=== PATIENT | female | born 1940 | race African-American/Black ===

== ENCOUNTER 2018-05-22 06:45 | Observation (INO) | payer OTHER ==
[~2018-05-22] VITALS: Ht 160 cm; Wt 84.2 kg
--- NOTE | ~2018-05-22 | P ---
[facility] [place] [address] PROCEDURE REPORT Name: TIFFANIE DAVILA Room #: 209-P [facility] Danilo Frye#: [id number] Admission: 05/22/18 ������������������ Attend Phys: Wilber Canales MD Discharge: 05/23/18 ������������������ Date of : 40 Report #: [id number] THIS REPORT FOR: //name// CC: FAM tate KEYLA CARLOS [place] PREOPERATIVE DIAGNOSIS: Supraventricular tachycardia. POSTOPERATIVE DIAGNOSIS: Typical atrioventricular node reentrant tachycardia. HISTORY: The patient is a 78-year-old with history of SVT, here for ablation. PROCEDURES PERFORMED: 1. SVT ablation, CPT code 48317. 2. EP with left atrial pacing and recording, CPT code 59982. 3. Program stimulation after pacing, CPT code 19287. 4. 3D mapping, CPT code 40954. ANESTHESIA: The patient underwent MAC anesthesia with no anesthesia related complications. DESCRIPTION OF PROCEDURE: The patient underwent informed consent. We discussed the details of the procedure including the risks, which include but not limited to bleeding, vascular damage, cardiac perforation, stroke and CT. She understood these risks and is willing to proceed. The patient was brought to the EP laboratory in fasting and sedated state, prepped and draped in a sterile fashion and I then injected lidocaine to the bilateral groin regions and obtained access to bilateral femoral veins placing an 8 and 6-Rwandan short sheath in the right femoral vein and a 7 and 6-Rwandan short sheath in the left femoral vein using the modified Seldinger technique. Next, under fluoroscopy, I placed 3 quadripolar catheters at the HRA, His, and RV positions and a decapolar catheter in the coronary sinus. At baseline, this patient was in sinus rhythm, sinus cycle length was 760 milliseconds, DE interval 170 milliseconds, QRS duration 90 milliseconds, QT interval 390 milliseconds, AH interval 106 milliseconds, HV interval 50 milliseconds. Next, atrial pacing was performed from the right and left atrium from the HRA catheter and the CS catheter. AV block was noted at 350 milliseconds and with atrial burst pacing, there was clearly evidence that the patient had a slow pathway given her very long AH interval. Atrial ERP was noted at 300 milliseconds at [address] cycle length. Ventricular pacing was performed and VA block was 500 milliseconds. Ventricular ERP was 390 milliseconds at [address] cycle length with evidence of retrograde AV juan echoes. Next, isoproterenol infusion was [facility] [address] [place] [address] PROCEDURE REPORT Name: ZACK DAVILAFIDENCIO Room #: 209-P [facility] Danilo Frye#: [id number] Admission: 05/22/18 ������������������ Attend Phys: Wilber Canales MD Discharge: 05/23/18 ������������������ Date of : 40 Report #: [id number] initiated at 1 mcg per minute and with atrial burst pacing, the patient went into SVT with a tachycardia cycle length of 450 milliseconds, septal VA time of 35 milliseconds and ventricular entrainment demonstrated a VAHV response consistent with typical AV juan reentrant tachycardia. This was easily inducible while on Isuprel. 3D MAPPING AND ABLATION: Next, I opened a 4 mm Biosense Ramos ablation catheter and placed this via an SR0 sheath. A detailed 3D geometry of the right atrium with specific emphasis of the His bundle, slow pathway region and coronary sinus ostium was created. Next, ablation was performed at 50 roman and 55 degrees. A total of 5 lesions were performed and there was nice slow junctionals throughout these lesions. During the last lesion, there was a short run of nonsustained VT with transient 2:1 conduction, but this resolved. Immediately post-ablation, atrial burst pacing was performed and there was no longer any evidence of a slow pathway. AV block was noted at 520 milliseconds and there was no longer the long AH interval. AV juan ERP was noted at 430 milliseconds at [address] cycle length. Isoproterenol was initiated at 1 mcg per minute and AV block was noted at 430 milliseconds. Isoproterenol was then increased to 2 mcg per minute and again no SVT could be induced, there was not even single AV juan echoe noted. Atrial ERP was noted at 390 milliseconds at a [address] cycle length. Post-ablation, the patient was in sinus rhythm with sinus cycle length of 700 milliseconds, DE interval 200 milliseconds, QRS duration 98 milliseconds, QT interval 380 milliseconds, AH interval 123 milliseconds, and HV interval 49 milliseconds. CONCLUSIONS: 1. Successful ablation of typical AV juan reentrant tachycardia. 2. Normal SA juan function. 3. Normal AV juan function. 4. Normal His-Purkinje function. ��������������������������������������������� ���������������������������������������� By: ��������������������������������������������� 1304 [id number] Wilber Canales MD /nt
[2018-05-22 07:21] VITALS: BP 201/80
[2018-05-22] MEDS ORDERED: PACERONE200 MG PO (07:35)
[2018-05-22] MEDS ORDERED: CADUET 10 MG-11 EACH PO (07:36)
[2018-05-22] MEDS ORDERED: ASPIR 8181 MG PO (07:37)
[2018-05-22] MEDS ORDERED: PLAVIX 75 MG TA75 M1 PO (07:37)
[2018-05-22] MEDS ORDERED: AMARYL2 MG PO (07:38)
[2018-05-22] MEDS ORDERED: FENOFIBRATE48 MG PO (07:38)
[2018-05-22] MEDS ORDERED: IMDUR 60 MG TAB60 M1 PO (07:39)
[2018-05-22 07:40] LABS: ABSOLUTE NEUTROPHILS 6.5 thou/uL (1.4-8.2); BASOPHILS 0.9 % (0.0-2.0); EOSINOPHILS 1.7 % (0.0-3.0); HEMATOCRIT 41.4 % (37.0-47.0); HEMOGLOBIN 13.4 gm/dL (12.0-15.0); LYMPHOCYTES 28.4 % (24.0-44.0); MCHC 32.4 g/dL (28.0-37.0); MCV 83.4 fL (80.0-100.0); MONOCYTES 7.7 % (1.0-8.0); PLATELET COUNT 389 thou/uL (150-400); POLYS 61.3 % (36.0-66.0); RBC 4.96 mil/uL (4.20-5.00); RDW 15.5 % (10.5-14.5); WBC 10.6 thou/uL (4.0-11.0)
[2018-05-22] MEDS ORDERED: CRESTOR5 MG PO (07:41)
[2018-05-22] MEDS ORDERED: KLOR-CON 1010 MEQ PO (07:42)
[2018-05-22] MEDS ORDERED: RANEXA500 MG PO (07:42)
[2018-05-22] MEDS ORDERED: TOPROL XL25 MG PO (07:43)
[2018-05-22] MEDS ORDERED: OLMESARTAN-HCT1 EAC2 PO (07:43)
[2018-05-22] MEDS ORDERED: AMLODIPINE BESY10 MG PO (07:45)
[2018-05-22 07:53] LABS: APTT 25.4 Seconds (24.5-32.8); PROTIME 10.1 Seconds (9.3-11.4)
[2018-05-22 08:49] LABS: ALBUMIN 4.1 g/dL (3.4-5.0); CALCIUM 10.3 mg/dL (8.5-10.1); CREATININE 1.1 mg/dL (0.6-1.0); POTASSIUM 3.1 mmol/L (3.5-5.1); TOTAL BILIRUBIN 0.4 mg/dL (<0.1-1.0); TOTAL PROTEIN 8.4 g/dL (6.4-8.2)
--- NOTE | 2018-05-22 09:27 | EKG ---
[place] [address] [facility] [place] [address] ELECTROCARDIOGRAM REPORT Name: TIFFANIE DAVILA [id number] ������������������ Admission: 05/22/18 ������������������ Attend Phys: Wilber Canales MD Discharge: ������������������ Date of : 40 Report #: [id number] ����������������������������������������������������������������� [id number] THIS REPORT FOR: //name// [facility] Test Date: 2018-05-22 Test Time: 07:15:38 Pat Name: TIFFANIE DAVILA Department: Room: Gender: F Lawn Technician: [place] LOCKE : 1940 Requested By: Wilber Canales Order Number: [id number] MD: Pepito Ashley Measurements Intervals [place] Rate: 85 P: 95 WV: 171 QRS: 51 QRSD: 91 T: 211 QT: 393 QTc: 468 Interpretive Statements Sinus rhythm Probable LVH with secondary repol abnrm No previous ECG available for comparison Electronically Signed On 05-22-2018 9:27:01 MILLER SUPERVISOR by Pepito Ashley [email or web address] ��������������������������������������������� <ELECTRONICALLY SIGNED> ���������������������������������������� By: Pepito Ashley MD, [facility] ��������������������������������������������� 05/22/18 0927 4 Pepito Ashley MD, FACC /EPI
--- NOTE | 2018-05-22 16:32 | NUR ---
PT ADMITTED FROM CLINICAL NURSING DIRECTOR AT APPROX 1545. PT ORIENTED TO ROOM AND UNIT. PT A/O X 4. DENIES PAIN. VSS. SR ON TELE. ADMISSION ASSESSMENT COMPLETED.
[2018-05-22 21:22] VITALS: BP 184/55
[2018-05-23 00:18] VITALS: BP 151/82
[2018-05-23 04:00] VITALS: BP 145/82
--- NOTE | 2018-05-23 04:05 | NUR ---
Pt post cardiac ablation. ao x4. Groin sites dressing (L & R ) both clean dry and intact, with minimal dry blood stay on the left that was there post procedure. pt BP controlled better compared previous SBP 200+ . pt denies nausea, chest pain, SR on the monitor. anticipate to DC today.
[2018-05-23 07:34] VITALS: BP 161/70
[2018-05-23 09:11] VITALS: BP 161/70
[2018-05-23] MEDS ORDERED: CADUET 10 MG-11 EACH PO (09:15)
[2018-05-23] MEDS ORDERED: CLONIDINE0.1 PO (11:05)
== END 2018-05-23 11:45 | disposition home or self-care (01) ==
LOC: CATH 06:45 → 2N 16:21 → ENTRNSPT 05-23 11:34 → EDTRNSPTSTS 05-23 11:37 → 2N 05-23 11:45
PROVIDERS: ADMIT Internal Medicine Cardiovascular Disease
DX: I47.1 Supraventricular tachycardia (principal); I25.10 Atherosclerotic heart disease of native coronary artery without angina pectoris; E11.51 Type 2 diabetes mellitus with diabetic peripheral angiopathy without gangrene; I10 Essential (primary) hypertension; E78.5 Hyperlipidemia, unspecified; Z88.0 Allergy status to penicillin
CPT/HCPCS: 62110; 62900; 70005